=== PATIENT | male | born 1995 | race Hispanic/Latino ===

== ENCOUNTER 2017-11-22 13:52 | Emergency (ER) | payer OTHER ==
[~2017-11-22] VITALS: Ht 177.8 cm; Wt 90.7 kg
[2017-11-22] MEDS ORDERED: HYDROCODONE/APAP 10MG-325MG TAB PO STA (16:29)
[2017-11-22] MEDS ORDERED: LIDOCAINE 1% W/EPINEPHRINE 20 ML VIAL INJ ONE (16:30)
== END 2017-11-22 17:08 | disposition home or self-care (01) ==
LOC: ER 13:52
DX: L02.412 Cutaneous abscess of left axilla (principal)
CPT/HCPCS: 99284